=== PATIENT | female | born 1980 | race Hispanic/Latino ===

== ENCOUNTER 2019-01-21 19:24 | Observation (INO) | payer SELFPAY ==
[~2019-01-21 19:24] MED LIST: ISOVUE-370 76%-LOCM 1 ML ONE
[2019-01-21 21:55] LABS: ALT (SGPT) 37 U/L (8-55); AST (SGOT) 25 U/L (5-34); Albumin 4.2 g/dL (3.5-5.0); Alkaline Phosphatase 81 U/L (40-150); Anion Gap 16 mmol/L (10-20); BUN (Urea Nitrogen) 13 mg/dL (7.0-18.7); Bilirubin, Total 0.3 mg/dL (0.2-1.2); Calc. Creatinine Clearance 0 mL/min (70-130); Calcium 10.2 mg/dL (7.8-10.44); Carbon Dioxide 19 mmol/L (22-29); Chloride 105 mmol/L (98-107); Estimated GFR-MDRD 79; Globulin 3.9 g/dL (2.4-3.5); Glucose 99 mg/dL (70-105); Lipase 28 U/L (8-78); Protein, Total 8.1 g/dL (6.0-8.3); Sodium 136 mmol/L (136-145)
[2019-01-21 22:02] LABS: Band 1 % (5-11); Lymphocytes 59 % (21-51); MDiff Complete? YES; Mean Corpuscular HGB CONC 32.5 g/dL (32.0-36.0); Mean Corpuscular Hemoglobin 28.5 pg (27.0-31.0); Mean Corpuscular Volume 87.7 fL (78.0-98.0); Mean Platelet Volume 6.1 fL (7.4-10.4); Monocytes 4 % (0-10); Neutrophil 34 % (42-75); Platelet Count 488 thou/uL (130-400); Platelet Morphology Comment Appears Increased; RBC Distribution Width 12.1 % (11.5-14.5); RBC Morphology Normal; Reactive Lymphocytes 2 % (0-10); Red Blood Cell (RBC) Count 5.26 mill/uL (4.20-5.40); White Blood Cell (WBC) Count 8.4 thou/uL (4.8-10.8)
[2019-01-21] MEDS ORDERED: Ondansetron PF 4 MG/2 ML Vial ONE (23:39)
[2019-01-21] MEDS ORDERED: Morphine 4 MG/ML VIAL ONE (23:39)
[2019-01-22 00:13] LABS: BHCG - Serum Negative (NEGATIVE); Pregs Control Background? CLEAR/WHITE (CLR/WHITE); Pregs Control Bar Appear? YES (CONTROL BAR)
[2019-01-22 00:59] LABS: Troponin I Less than 0.010 ng/mL (< 0.028)
[2019-01-22] MEDS ORDERED: Morphine 4 MG/ML VIAL ONE (02:03)
[2019-01-22 03:32] LABS: Pregnancy Test - Urine (BHCG) Negative (Negative); Pregu Control Background? CLEAR/WHITE (CLR/WHITE); Pregu Control Bar Appear? YES (CONTROL BAR); Specific Gravity 1.025 (1.002-1.036)
[2019-01-22 03:33] LABS: Bilirubin Negative (Negative); Blood, Urine Negative (Negative); Clarity CLEAR (Clear); Glucose, Urine (Dipstick) Negative (Negative); Leukocyte Moderate (Negative); Nitrite Negative (Negative); Protein, Urine (Dipstick) Negative (Neg-Trace); Specific Gravity, Urine 1.024 (1.002-1.036); Urobilinogen 0.2 mg/dL (0.2-1.0)
[2019-01-22 03:38] LABS: Bacteria/HPF 1+ HPF (None Seen); Hyaline Casts/LPF 0-3 HYALINE CAST LPF (0-3 Hyaline); Pathc Cast-AUWi Flag 0.27 (0-2.49)
[2019-01-22 03:47] LABS: RBC/HPF 0-3 HPF (0-3)
[2019-01-22] MEDS ORDERED: Acetaminophen 325 MG TAB PO PRN (03:56)
[2019-01-22] MEDS ORDERED: Sodium Chloride 0.9% 1,000 ML IV SCH (03:56)
[2019-01-22] MEDS ORDERED: Ondansetron ODT 4 MG TAB SL PRN (03:56)
[2019-01-22] MEDS ORDERED: Ondansetron PF 4 MG/2 ML Vial IVP PRN (03:56)
[2019-01-22] MEDS ORDERED: Ketorolac Tromethamine 30 MG/ML VIAL IVP PRN (03:58)
[2019-01-22] MEDS ORDERED: Acetaminophen 1,000 MG in Premix Bag 1 BAG IVPB PRN (03:59)
[2019-01-22] MEDS ORDERED: Bupivacaine/Epinephrine 0.25% 30 ML VIAL ONE (04:17)
[2019-01-22] MEDS ORDERED: Fentanyl 100 MCG/2 ML VIAL ONE ×2 (04:38→06:43)
[2019-01-22] MEDS ORDERED: Famotidine/PF 20 mg/2ml Vial ONE (04:38)
[2019-01-22 04:40] VITALS: TEMP 97.6
[2019-01-22 04:42] VITALS: BMI 32.5
[2019-01-22] MEDS ORDERED: Meperidine HCl/PF 25 MG/ML VIAL ONE (04:49)
[2019-01-22] MEDS ORDERED: Iothalamate Meglumine 60% 50 ML VIAL FS ONE (04:58)
--- NOTE | 2019-01-22 05:08 | HP ---
HISTORY OF PRESENT ILLNESS: Ms Pool, a 38-year-old woman, presented to the emergency department with recurrent severe epigastric to right upper quadrant abdominal pain. The pain is usually exacerbated by eating. The pain has persisted in the last 36 hours without any relief. She was seen in the emergency department, received several doses of intravenous analgesics without any relief. Workup was accomplished following which the patient was referred to General Surgery. At the time of my evaluation, she rates her pain at 8/10, having just received some intravenous analgesics. She denies any fevers or chills. She endorses abdominal bloating and flatulence. PAST MEDICAL HISTORY: She denies any previous medical problems. PAST SURGICAL HISTORY: The patient denies any previous surgeries. SOCIAL HISTORY: She is a G5, P5. Does not smoke. Has no ethanol or illicit drug abuse history. She is , lives at home with her . She is employed in a [employer]. FAMILY HISTORY: The patient denies any family history of diabetes mellitus, hypertension, heart disease, or cancer. PRE-HOSPITAL MEDICATIONS: None. ALLERGIES: THE PATIENT DENIES ANY KNOWN DRUG ALLERGIES. REVIEW OF SYSTEMS: A 10-point review of systems is essentially unremarkable except as stated in past medical history and chief complaint. PHYSICAL EXAMINATION: GENERAL: This reveals a 38-year-old normally developed woman, who is otherwise coherent and interactive and appears stated age. The patient is alert and oriented x3, appears to be in moderate acute distress secondary to severe abdominal pain. VITAL SIGNS: Include blood pressure 131/70, pulse is 64, respiratory rate is 16, temperature 97.6 degrees Fahrenheit, and oxygen saturation 99% on room air. HEENT: Reveals normocephalic and atraumatic. The pupils are equal, round, reactive to light and accommodation. Extraocular muscles are intact bilaterally. She has no scleral icterus present. HEART: Reveals regular rate and rhythm. No murmurs or gallops auscultated. LUNGS: Clear to auscultation bilaterally. Her breathing, regular and nonlabored. ABDOMEN: Soft with right upper quadrant tenderness to palpation. She has a positive Perea's sign. Liver and spleen are otherwise nonpalpable below costal margin. EXTREMITIES: Reveals 2 +radial and pedal pulses bilaterally. No ankle edema is present. NEUROLOGIC: Reveals no focal deficits present. LABORATORY FINDINGS: Today includes a CBC with 8,400 white blood cells, hemoglobin and hematocrit 15.0 and 46.1 respectively. Platelet count is 488,000. Metabolic profile; sodium 136, potassium is 4.0, chloride is 105, bicarb is 19, BUN 13, creatinine 0.82, glucose 99, lactic acid 0.8, total bilirubin is 0.3. AST and ALT normal at 25 and 37 respectively. C-reactive protein is marginally elevated at 0.82. Serum test is negative. Serum lipase is also normal at 28. I have reviewed the abdominal ultrasound, which is remarkable for multiple intraluminal gallstones impacted in the gallbladder neck. Although, there is no significant gallbladder wall thickening, there is small amount of pericholecystic fluid present. Common bile duct is upper limits of normal for this patient's age at 4.6 mm in diameter. IMPRESSION: Acute cholecystitis with cholelithiasis. PLAN: Laparoscopic cholecystectomy with intraoperative cholangiogram. Above findings and plan has been discussed with the patient through a motor vehicle parts interpreter. I have informed the patient of the risks and benefits of the proposed surgery to include, but not limited to bleeding, infection, injury to bile duct or surrounding structures. The patient indicates understanding of information provided. I have answered her questions. The patient is going to consent for this admission and surgical intervention. Job ID: [id number]
[2019-01-22] MEDS ORDERED: Ondansetron HCl/PF 4 MG/2 ML Vial IVP PRN (06:17)
[2019-01-22] MEDS ORDERED: Promethazine HCl 25 MG/ML VIAL IM PRN (06:17)
[2019-01-22] MEDS ORDERED: Promethazine HCl 25 MG/ML VIAL SLOW IVP PRN (06:17)
[2019-01-22] MEDS ORDERED: Meperidine HCl/PF 25 MG/ML VIAL SLOW IVP PRN (06:17)
[2019-01-22] MEDS ORDERED: traMADol HCl 50 MG TAB PO PRN ×2 (06:52)
[2019-01-22] MEDS ORDERED: Ibuprofen 800 MG TAB PO PRN (06:52)
--- NOTE | 2019-01-22 06:55 | OP ---
DATE OF PROCEDURE: 01/22/2019 PREOPERATIVE DIAGNOSIS: Acute cholecystitis with cholelithiasis. POSTOPERATIVE DIAGNOSIS: Acute cholecystitis with cholelithiasis. OPERATIONS PERFORMED: Laparoscopic cholecystectomy with intraoperative cholangiogram. ANESTHESIA: General endotracheal. ESTIMATED BLOOD LOSS: 15 mL. FLUIDS GIVEN: 1600 mL crystalloids. COUNTS: Sponge and instrument counts were verified as correct x2. COMPLICATIONS: None apparent at the time of operation. INDICATIONS FOR OPERATION: This is a 38-year-old woman, presented with recurrent epigastric right upper quadrant abdominal pain. Clinical radiographic examination was consistent with acute cholecystitis, cholelithiasis for which the patient was brought to the operating room for cholecystectomy. Findings are consistent with gallbladder in the usual anatomic location partially encased by omental adhesions. DESCRIPTION OF PROCEDURE: Informed consent obtained from the patient, she was brought to the operating room and placed in supine position. Following general anesthesia, abdomen was sterilely prepped and draped in usual fashion. The skin below the umbilicus was infiltrated with 0.25% Marcaine with epinephrine. A small curvilinear infraumbilical incision was made using an 11 scalpel. Umbilical stalk grasped with Jace and elevated. Veress needle inserted through incision, placed in the peritoneal cavity through which the abdomen was insufflated with 3 L of CO2 gas. Following abdominal insufflation, Veress needle was removed and a 5 mm trocar introduced using a Visiport under laparoscopy. Laparoscopy confirmed proper placement of the port. No injuries to underlying structures. Additional laparoscopy reveals gallbladder in the usual anatomic location partially encased by omental adhesions. Under direct laparoscopy, a 12 mm epigastric and two 5 mm right lateral subcostal ports were placed after the overlying skin that were infiltrated with 0.25% Marcaine with epinephrine and appropriate incision was made. The patient was placed in a reverse Trendelenburg position, rotated to her left. Prestige grasper was introduced through the right lateral subcostal port grasping the fundus of the gallbladder, which was elevated cephalad. Arianne dissector with cautery was used to take down omental adhesions from the remainder of the gallbladder. Second Prestige grasper introduced through the right medial subcostal port grasping the Tree pouch, which was retracted laterally. The cystic duct was dissected free from surrounding structures at the triangle of Calot. A single clip was applied at the junction of the cystic duct and gallbladder. A cystotomy is made proximal to this securing clip. Cholangiocatheter was introduced into the right upper quadrant and inserted into the cystic duct and lumen securing this with a single clip. It was flushed first with saline. Cholangiogram was completed on the fluoroscopy using 10 mL of Conray contrast, finding no filling defects. Total fluoroscopy time was 21 seconds. Following cholangiography, the securing clip was removed and the catheter was removed from the abdominal cavity. The cystic duct was divided between clips, applying 2 clips proximally. The cystic artery was dissected free from surrounding structures and divided between clips in a similar fashion. The gallbladder itself was removed from the liver bed using cautery with good hemostasis. Operative site was irrigated with saline, noting good hemostasis in place. Finding no other pathology, laparoscopy was terminated. Fascia of the epigastric port was closed using 0 Vicryl suture and Endoclosure device under laparoscopy. The abdomen was desufflated. All ports and instruments were removed and accounted for. Skin incisions were closed using 4-0 Monocryl suture in subcuticular fashion. Dermabond was applied over incisional closure. The patient tolerated the operation without any apparent complication and was returned to recovery room in satisfactory condition. Job ID: [id number]
[2019-01-22] MEDS ORDERED: Acetaminophen 325 MG TAB PO SCH (07:00)
--- NOTE | 2019-01-22 07:42 | CT ---
CT OF THE ABDOMEN AND PELVIS WITH IV CONTRAST: INDICATION: Right upper quadrant abdominal pain. FINDINGS: Lung bases are clear. There is fatty infiltration of the liver. There are layered gallstones within the gallbladder. No overt inflammatory changes evident. Pancreas, adrenal glands, and kidneys appear within normal limits. No free fluid or enlarged lymph nodes evident. There is a normal appendix in the right lower quadrant. The bladder, rectum, and perirectal soft tissues are unremarkable-appearing. No acute osseous abnormality is evident. IMPRESSION: 1. Fatty liver. 2. Cholelithiasis. 3. Normal appendix. POS: [facility]
--- NOTE | 2019-01-22 07:54 | ULT ---
RIGHT UPPER QUADRANT ULTRASOUND: HISTORY: Abdominal pain and gallstones. FINDINGS: There is prominent fatty infiltration of the liver. There are multiple gallstones within the gallbladder. The common bile duct measures 4.6 mm, which is within normal limits. No gallbladder wall thickening or pericholecystic fluid is evident. No sonog raphic Perea's sign is reported. The right kidney measures 10 cm in length. The pancreas appeared within normal limits. IMPRESSION: 1. Fatty liver. 2. Cholelithiasis without sonographic evidence of acute cholecystitis. POS: [facility]
[2019-01-22] MEDS ORDERED: Acetaminophen 500 MG TAB PO SCH (09:00)
--- NOTE | 2019-01-22 10:11 | RAD ---
INTRAOPERATIVE CHOLANGIOGRAM 2 VIEWS: DATE: 01/22/2019. HISTORY: A 38-year-old female immediately status post cholecystectomy for cholelithiasis. FINDINGS: Injection into cystic duct stump demonstrates caliber of common bile duct and common hepatic duct to be at the upper limits of normal. No filling defect. There is contrast material in the duodenum. T he left and right hepatic ducts, and the intrahepatic biliary radicals, are not opacified. IMPRESSION: No evidence of biliary obstruction or choledocholithiasis. POS: [facility]
[2019-01-22] MEDS ORDERED: Lidocaine 1% PF 5 ML VIAL ONE (15:00)
[2019-01-22] MEDS ORDERED: Succinylcholine Chloride 20 MG/ML 10 ml SYRINGE FS ONE (15:00)
[2019-01-22] MEDS ORDERED: PHENYLEPHRINE-NS 100 MCG/ML 10 ML SYRINGE ONE (15:00)
[2019-01-22] MEDS ORDERED: Glycopyrrolate 0.2 MG/ML 5 ML SYRINGE ONE (15:00)
[2019-01-22] MEDS ORDERED: Metoclopramide HCl 10 MG/2 ML VIAL ONE (15:00)
[2019-01-22] MEDS ORDERED: Rocuronium Bromide 10 MG/ML (10ML VIAL) ONE (15:00)
[2019-01-22] MEDS ORDERED: Dexamethasone 20 MG/5 ML VIAL ONE (15:00)
[2019-01-22] MEDS ORDERED: PROPOFOL 200 MG/20 ML VIAL ONE (15:00)
[2019-01-22] MEDS ORDERED: Ketorolac Tromethamine 30 MG/ML VIAL ONE (15:00)
[2019-01-22] MEDS ORDERED: Ondansetron PF 4 MG/2 ML Vial ONE (15:00)
[2019-01-22 15:11] VITALS: BP 131/85
--- NOTE | 2019-01-22 17:46 | DIS ---
DATE OF ADMISSION: 01/22/2019 DATE OF DISCHARGE: 01/22/2019 DISCHARGING PHYSICIAN: Chance Mills DO. ADMITTING DIAGNOSES: Acute cholecystitis with cholelithiasis. DISCHARGE DIAGNOSES: Acute cholecystitis with cholelithiasis. OPERATION PERFORMED: Laparoscopic cholecystectomy today. HISTORY AND HOSPITAL COURSE: A 38-year-old woman, G5, P5, presented with recurrent epigastric right upper quadrant abdominal pain. Clinical radiographic examination was consistent with acute cholecystitis with cholelithiasis for which the patient underwent an uneventful laparoscopic cholecystectomy. Several hours after surgery, the patient is ambulating with minimal difficulty. Her pain is adequately controlled on oral analgesics. She is tolerating general diet. She is passing flatus. Incisional wounds remain intact, clean, and dry. The patient will be discharged home today with the following instructions; 1. She sees me in the Surgery [facility] in 2 weeks. 2. She is to take Tylenol 1000 mg p.o. q.6 hours alternating this with ibuprofen 800 mg p.o. q.8 hours p.r.n. pain. Additionally, she was given a prescription for tramadol 50 mg #20 to be taken 1 to 2 p.o. q.6 hours p.r.n. pain. 3. She may shower effective tomorrow and avoid swimming or soaking herself in a bathtub until she has been released by me. 4. Weight lifting is elevated to 20 pounds. 5. She is to call me with any questions or problems including fever in excess of 101 degrees Fahrenheit, intolerance to oral intake, exacerbation of abdominal pain, or any abnormal drainage from the incisional wound. 6. The patient indicates understanding of information given to her through a baby doctor. I have answered their questions. Job ID: [id number]
--- NOTE | 2019-01-29 11:56 | EKG ---
Test Reason : AMS Blood Pressure : / mmHG Vent. Rate : 076 BPM Atrial Rate : 076 BPM P-R Int : 150 ms QRS Dur : 082 ms QT Int : 392 ms P-R-T Axes : 012 -04 004 degrees QTc Int : 441 ms Normal sinus rhythm Normal ECG Confirmed by JERI FRIEDMAN DO ([id number]), fashion editor JAN FLORENTINO ([id number]) on 01/29/2019 11:55:49 AM Referred By: ELDER Confirmed By:JERI FRIEDMAN DO
== END 2019-01-22 14:40 | disposition home or self-care (01) ==
LOC: ERS 19:24 → SURG A 01-22 03:40
PROVIDERS: ADMIT Surgery; ATTEND Surgery
PROC: 0FT44ZZ Resection of Gallbladder, Percutaneous Endoscopic Approach (ICD-10-PCS; principal; 2019-01-22)
PROC: BF101ZZ Fluoroscopy of Bile Ducts using Low Osmolar Contrast (ICD-10-PCS; 2019-01-22)
DX: K80.12 Calculus of gallbladder with acute and chronic cholecystitis without obstruction (principal); K76.0 Fatty (change of) liver, not elsewhere classified
CPT/HCPCS: 36415; 47532; 74177; 76705; 80053; 81003; 81015; 81025; 83605; 83690; 84484; 84703; 85025; 86140; 86850; 86900; 86901; 88304; 93005; 94760; 96361; 96374; 96375; 96376; G0378; J0131; J1100; J1885; J2001; J2175; J2270; J2405; J2704; J2765; J3010; Q9961; Q9966; S0028

== ENCOUNTER 2019-01-29 14:13 | Emergency (ER) | payer SELFPAY ==
[2019-01-29] MEDS ORDERED: Ketorolac Tromethamine 30 MG/ML VIAL ONE (14:48)
[2019-01-29] MEDS ORDERED: Ondansetron PF 4 MG/2 ML Vial ONE (14:48)
[2019-01-29 15:53] LABS: #Eosinphils 0.2 thou/uL (0.0-0.7); #Lymphocytes 3.8 thou/uL (1.20-3.40); #Monocytes 0.8 thou/uL (0.11-0.59); #Neutrophils 3.1 thou/uL (1.40-6.50); %Basophils 0.6 % (0.0-1.0); %Lymphocytes 47.1 % (21.0-51.0); %Monocytes 10.2 % (0.0-10.0); %Neutrophils 39.1 % (42.0-75.0); Hemoglobin 12.1 g/dL (12.0-16.0); Mean Corpuscular HGB CONC 33.5 g/dL (32.0-36.0); Mean Corpuscular Hemoglobin 28.9 pg (27.0-31.0); Mean Corpuscular Volume 86.3 fL (78.0-98.0); Mean Platelet Volume 6.3 fL (7.4-10.4); Platelet Count 463 thou/uL (130-400); RBC Distribution Width 12.3 % (11.5-14.5); Red Blood Cell (RBC) Count 4.17 mill/uL (4.20-5.40)
[2019-01-29 15:54] LABS: BHCG - Serum Negative (NEGATIVE); Pregs Control Background? CLEAR/WHITE (CLR/WHITE); Pregs Control Bar Appear? YES (CONTROL BAR)
[2019-01-29 16:04] LABS: ALT (SGPT) 39 U/L (8-55); AST (SGOT) 20 U/L (5-34); Albumin 3.9 g/dL (3.5-5.0); Alkaline Phosphatase 75 U/L (40-150); Anion Gap 13 mmol/L (10-20); BUN (Urea Nitrogen) 11 mg/dL (7.0-18.7); Bilirubin, Total 0.2 mg/dL (0.2-1.2); Calc. Creatinine Clearance 0 mL/min (70-130); Calcium 9.3 mg/dL (7.8-10.44); Carbon Dioxide 22 mmol/L (22-29); Chloride 105 mmol/L (98-107); Estimated GFR-MDRD Greater than 90; Globulin 3.1 g/dL (2.4-3.5); Glucose 96 mg/dL (70-105); Lipase 38 U/L (8-78); Potassium 3.5 mmol/L (3.5-5.1); Sodium 136 mmol/L (136-145)
--- NOTE | 2019-01-29 16:30 | CT ---
CONTRAST ENHANCED CT IMAGES OF THE ABDOMEN AND PELVIS: 01/29/19 IV contrast was given. Unfortunately oral contrast was not given. This does decrease the sensitivity for detection of pathology. COMPARISON: Comparison made to a previous CT from 01/22/19. CT images abdomen and pelvis demonstrate the lung bases to be unremarkable. No evidence of free intra peritoneal air seen. Extensive hepatic steatosis seen. the gallbladder has been surgically removed. A nterior abdominal wall cholecystectomy laparoscopic track seen in the abdominal wall on subcutaneous . The pancreas and spleen are unremarkable. Adrenal glands unremarkable. The kidneys are unremarkable. No dilated loops of small bowel seen. A normal appendix is visualized. The colon is unremarkable. Left ovarian corpus luteal cyst is present. The right ovary and uterus are unremarkable. IMPRESSION: Unremarkable CT abdomen and pelvis. POS: [facility]
== END 2019-01-29 16:51 | disposition home or self-care (01) ==
LOC: ERS 14:13
DX: R10.10 Upper abdominal pain, unspecified (principal); R11.0 Nausea; Z79.891 Long term (current) use of opiate analgesic
CPT/HCPCS: 74177; 80053; 83605; 83690; 84703; 85025; 96361; 96374; 96375; J1885; J2405; Q9966